=== PATIENT | female | born 1980 | race Caucasian/White ===

== ENCOUNTER 2025-02-18 21:01 | Observation (INO) | payer BC, SELFPAY ==
[2025-02-18 15:32] VITALS: BP 118/81
[2025-02-18 16:51] VITALS: BP 136/70
[2025-02-18] MEDS: DECADRON 10 MG IV (17:21)
[2025-02-18] MEDS: BENADRYL 25 MG IV (17:21)
[2025-02-18] MEDS: PEPCID 20 MG IV (17:21)
[2025-02-18] MEDS: NSS 500 IV (17:22)
[2025-02-18] MEDS: VENTOLIN NEBULES 2.5 MG INH (17:46)
[2025-02-18 18:14] VITALS: BP 130/72
--- NOTE | 2025-02-18 19:06 | ED.GENMED ---
History of Present Illness
General
Chief Complaint: Allergic Reaction
Source: patient
Exam Limitations: none
Time Seen by Provider: 02/18/25 16:42
Nursing documentation reviewed up to this point in time: agreed with
History of Present Illness
History of Present Illness:
Patient presents to ED secondary to worsening itchy rash over the past 3 days. Patient was evaluated by her primary care physician and was started on Medrol dose pack yesterday, without improvement symptoms. Denies fever or chills. Denies nausea,
vomiting, or diarrhea. Denies voice change. Patient however, does report sensation of swelling in the throat, which is making it difficult for her to swallow due to pain with swelling sensation. Denies chest pain or shortness of breath. Patient
has had similar rash in the past secondary to allergic reaction to medications, but has never experienced throat swelling sensation. Patient has taken Benadryl this morning, with minimal relief of symptoms as well.
Review of Systems
Review of Systems
Allergies reviewed?: Yes
All Other Systems: ROS reviewed and negative except as documented in HPI and ROS
Constitutional: Reports no symptoms; Denies fever or chills
EENT: Reports other (Throat swelling)
Respiratory: Denies cough or trouble breathing
ABD/GI: Reports no symptoms
Musculoskeletal: Reports no symptoms
Skin: Reports itching and rash
Neurological: Reports no symptoms
Phy Exam
Physical Exam
Physical Exam:
Physical Exam
General: mild distress, not acutely ill. afebrile
Head: nc/at. eomi
Neck: supple. no meningeal signs. normal posterior pharynx. normal tonsils
Heart: s1/s2 regular rate and rhythm
Lungs: no acute respiratory distress. clear bilaterally
Abdomen: normal bowel sounds. not tender.
Neuro: alert and oriented x 3. no focal neurological deficits
Skin: urticaria noted over b/l UE/LE and face
Psychiatric: well kept. interactive and cooperative
Extremities: no edema. no calf tenderness.
Course
Orders/Labs/Results
Orders:
Orders
02/18/25 17:13
Dexamethasone Sod Phosphate [Decadron] 10 mg IV NOW STA
Diphenhydramine [Benadryl] 25 mg IV NOW STA
Famotidine [Pepcid] 20 mg IV NOW STA
02/18/25 17:14
0.9% Sodium Chloride 500 ml [Nss] 500 ml IV BOLUS
02/18/25 17:22
Albuterol Nebs [Ventolin Nebules] 2.5 mg INH R NOW STA
02/18/25 20:28
Test Result ONCE
02/18/25 20:41
Basic Metabolic Panel Urgent
Complete Blood Count/No Diff Urgent
HCG, Serum Qualitative Screen Urgent
02/18/25 20:45
Admit/Transfer Patient As Directed
Co-Sign Provider:
Level of Care: Observation services
Assign to:: Telemetry
Physician / Group: [email or web address]
Diagnosis: allergic reaction
Reason for Telemetry: Other
Other Reason for Telemetry: eavl for anaphylaxis
Date to Stop Telemetry: 02/20/25
Time to Stop Telemetry: 11:00
02/18/25 20:47
Code Status As Directed
Resuscitation Status: Full Code
02/18/25 21:41
Bisacodyl [Dulcolax] 10 mg RECTAL [id number] PRN
Diphenhydramine [Benadryl] 6.25 mg IV Q4HPRN PRN
Docusate W/Senna [Senokot-S] 1 tablet PO BIDPRN PRN
Ipratropium/Albuterol Sulfate [Duoneb] 3 ml INH R Q4HPRN PRN
Polyethylene Glycol Powder [Miralax] 17 grams PO DAILYPRN PRN
02/18/25 21:41
Activity As Directed
Activity Level: With Assistance
Pneumatic Compression Sleeves As Directed
Type: Knee high
Vital Signs As Directed
Frequency: Per unit guidelines
DX Deep Vein Thrombosis Video Routine
02/19/25 Breakfast
Full Liquids
At Your Request: Full Participation
02/19/25 06:35
Basic Metabolic Panel IN AM
Complete Blood Count/With Diff IN AM
02/19/25 08:00
Dexamethasone Sod Phosphate [Decadron] 2 mg IV Q12
Famotidine [Pepcid] 20 mg IV Q12
02/20/25 11:00
DC Protocol for Telemetry ONCE
Abnormal Lab Results
02/18/25
20:41
WBC 15.1 H 10^3/uL
(4.8-10.8)
Chloride 109 H mmol/L
(98-107)
Glucose 129 H mg/dl
(70-99)
02/18/25 20:41
02/18/25 20:41
Vital Signs
Initial and Last Documented VS:
Initial Vital Signs
Temp Pulse Resp BP Pulse Ox
98.4 F 95 16 118/81 93
02/18/25 15:32 02/18/25 15:32 02/18/25 15:32 02/18/25 15:32 02/18/25 15:32
Last Documented Vital Signs
Temp Pulse Resp BP Pulse Ox
98 F 78 16 112/56 95
02/19/25 11:06 02/19/25 11:06 02/19/25 11:06 02/19/25 11:06 02/19/25 11:06
MDM/Problems Addressed
MDM/Problems Addressed:
History and exam concerning for continual allergic reaction symptoms, despite treatment. In light of patient's subjective ongoing throat swelling sensation with hives, will need further treatment.
*Critical Care Note
Total Time (30-74mins, 75-104mins- exclusive of procedures): Not Applicable
ED Attending Note
-
Portions of this chart may have been created with voice recognition software.� Occasional wrong word or��sound alike� substitutions may have occurred due to the inherent limitations of voice recognition software.
Discharge Plan
Departure
Patient Disposition: Admit
Date of Disposition: 02/18/25
Time of Disposition: 20:26
Admit to: Telemetry
Presentation/result/management discussed w/ accepting MD/DO: Hospitalist
Discharge Problem:
Allergic reaction
Interventions
Interventions:
*General Assessment Last Done: 02/18/25 16:48
*ED- Fall Risk Assessment Last Done: 02/18/25 16:32
*Nursing Disposition Last Done: 02/18/25 21:36
ED- Cardiac Assessment Last Done: 02/18/25 16:32
ED- Pulmonary Assessment Last Done: 02/18/25 16:32
ED-Skin Assessment Last Done: 02/18/25 16:32
Discharge Date and Time
Discharge Date/Time: 02/18/25 21:37
--- NOTE | 2025-02-18 20:30 | HPS.HSE ---
Family Physician
-
Family Physician: Mag Ricci
Chief Complaint
-
worsening itchy hives
History of Present Illness
45F No prior DH visit , HX allergy to PCN and Sulfa seean at ER for worsening itchy rash over the past 3 days. -
- evaluated by PCP who started on Medrol dose pack yesterday, without improvement symptoms.
- Temporal correlation of precipitants: 2 new Meds - Symbicort vs. Tessalon srinivasan since 02/12/25. New onset of hives on 02/16/25.
- never use Symbicort before. She had Tessalon pearls before but not allergic reaction to it
- subjective throat swelling but no angioedema of lips and tongue
-HX similar rash in the past secondary to allergic reaction to medications, but has never experienced throat swelling sensation.
- Patient has taken Benadryl this morning, with minimal relief of symptoms as well.
- Denies fever or chills. Denies voice change.
- Denies chest pain or shortness of breath.
Medical History
Past Medical History
Past Medical History: Reports None
Past Surgical History: Reports None
Social History
Tobacco: Non-smoker
Alcohol: Occasional
Family History
Family History: Not pertinent
Allergies / Home Medications
Allergies reflects when Allergies were last updated in [facility].
Home Medications with original date entered in [facility]
Allergy/Medication List:
Allergies
Allergy/AdvReac Type Severity Reaction Status Date / Time
amoxicillin Allergy Hives Verified 02/18/25 15:37
Sulfa (Sulfonamide Allergy Nausea / Verified 02/18/25 15:37
Antibiotics) Vomiting
If medication reconciliation has not been performed, why?: Other ( not on any meds )
Review of Systems
-
Constitutional: Reports No Symptoms
EENT: Reports See HPI
Respiratory: Reports No Symptoms
Cardiac: Reports No Symptoms
Abdomen/GI: Reports No Symptoms
: Reports No Symptoms
Musculoskeletal: Reports See HPI
Neurological: Reports No Symptoms
Endocrine: Reports No Symptoms
Hematologic/Lymphatic: Reports No Symptoms
Psych: Reports No Symptoms
Physical Exam
Vital Signs
Vital Signs
Temp Pulse Resp BP Pulse Ox
98.4 F 76 20 130/72 97
02/18/25 15:32 02/18/25 18:14 02/18/25 18:14 02/18/25 18:14 02/18/25 18:14
Physical Exam
General: Well Developed, Well Nourished and No Apparent Distress
HEENT: Moist mucous membranes
Respiratory: Clear
Cardiac: S1/S2 and Regular Rhythm; No Murmur or Rub
GI: Soft, Non Tender, Non Distended and Normal Bowel Sounds; No Organomegaly
Rectal: Deferred by Provider
Musculoskeletal: No Clubbing, No Cyanosis and No Edema
Skin: Rash (diffuse maculopapular urticaria rash all over the extremizes and axilla )
Neuro: Nonfocal/grossly intact
Data Reviewed
-
Lab Data: Other (pending )
Impression/Plan
-
Vital Signs
Temp Pulse Resp BP Pulse Ox
98.4 F 76 20 130/72 97
02/18/25 15:32 02/18/25 18:14 02/18/25 18:14 02/18/25 18:14 02/18/25 18:14
ASSESSMENT & PLAN
Extensive diffuse maculopapular urticaria hives / pruritic allergic dermatis all over the extremes, body and and axilla
Temporal correlation of precipitants: 2 new Meds - Symbicort vs. Tessalon srinivasan since 02/12/25. New onset of hives on 02/16/25.
- never use Symbicort before. She had Tessalon pearls before but not allergic reaction to it
- Associated subjective sensation of swelling in the throat but clear on exam
- subjective odynophagia
- slight raspy voice reported
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
- Subjective improvement with Benadryl at home
- S/P IV Decadron , IV Benadryl and IV Pepcid at ER - will continue
- No angioedema of tongue and lips
- she is protecting AW
- to consider imaging vs ENT evaluation, if throat swelling
DVT Px: SCD
Full code
Obs TLM
[2025-02-18 20:53] LABS: Hematocrit 37.3 % (37.0-47.0); Hemoglobin 12.9 g/dL (12.0-16.0); Mean Corp Hgb Conc. 34.6 g/dL (33.0-37.0); Mean Corpuscular Hgb 29.9 pg (27.0-31.0); Mean Corpuscular Volume 86.5 fL (81.0-99.0); Platelet Count 377 10^3/uL (130-400); Red Blood Cell Count 4.31 10^6/uL (4.20-5.40); Red Cell Dist. Width 13.3 % (11.5-14.5); White Blood Cell Count 15.1 10^3/uL (4.8-10.8)
[2025-02-18 21:12] LABS: Blood Urea Nitrogen 12 mg/dl (7-17); Calcium 9.8 mg/dl (8.4-10.2); Carbon Dioxide 24 mmol/L (22-30); Chloride 109 mmol/L (98-107); Glucose 129 mg/dl (70-99); Potassium 3.9 mmol/L (3.5-5.1); Sodium 140 mmol/L (135-145); eGFR > 60.00
[2025-02-18 21:17] LABS: HCG, Serum Qualitative Screen Negative
[2025-02-18 21:18] VITALS: BP 128/70
--- NOTE | 2025-02-18 21:36 | PTCARENOTE ---
Pt received from ED to [facility]-2. Pt oriented to room and call maldonado.
[2025-02-18 21:58] VITALS: BP 118/62; BMI 27.6
[2025-02-18] MEDS: BENADRYL 6.25 MG IV (22:08)
[2025-02-18 23:57] VITALS: BP 106/53
[2025-02-19 03:27] VITALS: BP 120/62
[2025-02-19] MEDS: BENADRYL 6.25 MG IV ×2 (05:23→11:41)
[2025-02-19 07:20] LABS: % Basophils 0.2 % (0-2); % Immature Granulocytes 0.4 % (0-0.5); % Lymphocytes 9.8 % (20.5-51.1); % Monocytes 6.1 % (1.7-9.3); % Neutrophils 80.5 % (42.2-75.2); Absolute Eosinophils 0.3 10^3/uL (0-0.7); Absolute Monocytes 0.6 10^3/uL (0.1-0.6); Absolute Neutrophils 8.3 10^3/uL (1.4-6.5); Hematocrit 39.7 % (37.0-47.0); Hemoglobin 13.3 g/dL (12.0-16.0); Mean Corp Hgb Conc. 33.5 g/dL (33.0-37.0); Mean Corpuscular Hgb 29.3 pg (27.0-31.0); Mean Corpuscular Volume 87.4 fL (81.0-99.0); Mean Platelet Volume 10.5 fL (7.4-10.4); Nucleated Red Blood Cells % 0 %; Platelet Count 410 10^3/uL (130-400); Red Blood Cell Count 4.54 10^6/uL (4.20-5.40); Red Cell Dist. Width 13.4 % (11.5-14.5); White Blood Cell Count 10.2 10^3/uL (4.8-10.8)
[2025-02-19 07:54] LABS: Blood Urea Nitrogen 12 mg/dl (7-17); Calcium 9.5 mg/dl (8.4-10.2); Carbon Dioxide 26 mmol/L (22-30); Chloride 109 mmol/L (98-107); Estimated Creatinine Clearance 113 ml/min; Glucose 104 mg/dl (70-99); Potassium 4.3 mmol/L (3.5-5.1); Sodium 142 mmol/L (135-145); eGFR > 60.00
[2025-02-19] MEDS: PEPCID 20 MG IV (08:05)
[2025-02-19] MEDS: DECADRON 2 MG IV (08:07)
--- NOTE | 2025-02-19 08:13 | W.PN.HOSP.TC ---
Today's Communication/Plan
-
- dc today
Assessment / Plan
Assessment / Plan
Assessment:
45yoF pmh depression/anxiety admitted for a worsening pruritic rash over the past three days. Started on symbicort and tessalon pearls on 02/12. Hives started 02/16. Never used symbicort before, has used tessalon pearls w/o rxn. Evaluated by PCP, was
started on medrol dose pack the day prior w/o improvement in sx. +throat swelling. Pt has had a similar rash in the past secondary to med allergies, but has never had the throat swelling before. Minimal relief w benadryl.
Plan:
Extensive urticaria
- temporal correlation of two new meds - symbicort vs tessalon pearls -- less likely tessalon pearls as pt has had these before w/o rxn.
- subjective swelling of throat
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
- subjective and clinical improvement
- IV decadron, benadryl, pepcid
- no angioedema
Depression/anxiety
- cont home zoloft
Diet: full liquids
DVT ppx: SCDs
Code status: FULL CODE
Anticipated Discharge: Today
Subjective/Interval History
-
Date of Service: February 19, 2025
Urticaria improved, less erythematous and no longer covering pt's neck. Pt's swollen throat sensation also improved.
Objective Data
-
Labs:
Laboratory Results
02/18/25 02/19/25
20:41 06:35
WBC 15.1 H 10.2
Hgb 12.9 13.3
Hct 37.3 39.7
Plt Count 377 410 H
Sodium 140 142
Potassium 3.9 4.3
Chloride 109 H 109 H
Carbon Dioxide 24 26
BUN 12 12
Creatinine 0.7 0.6
Glucose 129 H 104 H
Calcium 9.8 9.5
Vital Signs:
Vital Signs
Temp Pulse Resp BP Pulse Ox
97.4 F 67 16 120/62 95
02/19/25 03:27 02/19/25 03:27 02/19/25 03:27 02/19/25 03:27 02/19/25 03:27
I&O
02/18/25 02/19/25 02/20/25
06:59 06:59 06:59
Intake Total 480 / 480
Balance 480 / 480
Review of Systems
-
History Source: Patient
Constitutional: Reports No Symptoms
Respiratory: Reports No Symptoms
Cardiac: Reports No Symptoms
Abdomen/GI: Reports No Symptoms
Musculoskeletal: Reports No Symptoms
Skin: Reports Rash (urticaria)
Neuro: Reports No Symptoms
Physical Exam
-
General: Well Developed and Well Nourished
HEENT: Normocephalic, Atraumatic and Anicteric
Respiratory: Clear to Auscultation and Non Labored Respirations
Cardiac: Regular Rhythm and S1/S2
GI: Soft, Nontender, Nondistended and Normal Bowel Sounds
Musculoskeletal: No Clubbing, No Cyanosis and No Edema
Skin: Warm, Dry and Rash (urticaria over extensors in all four extremities)
Neuro: Awake, Alert and Oriented
Psych: Calm
[2025-02-19 08:53] VITALS: BP 104/70
--- NOTE | 2025-02-19 10:56 | W.DCSUMMARY ---
Discharge Summary
Discharge Data
Date of Admission: 02/18/25
Date of Discharge: 02/19/25
-
Pending Results: No
Hospital Course
Discharging Physician : Dr. Alyssia Chase, Dr. Orlando Greco
Disposition : home
Primary care physician : Mag Ricci
Principal Discharge diagnosis : allergic reaction, angioedema
Chronic Discharge diagnosis : depression/anxiety
Hospital Course : 45yoF pmh depression/anxiety admitted for a worsening pruritic rash over the past three days. Started on symbicort and tessalon pearls on 02/12. Hives started 02/16. Never used symbicort before, has used tessalon pearls w/o rxn.
Evaluated by PCP, was started on medrol dose pack the day prior w/o improvement in sx. +throat swelling. Pt has had a similar rash in the past secondary to med allergies, but has never had the throat swelling before. Minimal relief w benadryl.
Urticaria improved, less erythematous and no longer covering pt's neck. Pt's swollen throat sensation also improved. Hemodynamically stable, afebrile.
Important imaging findings : n/a
Procedure findings : n/a
Discharge Plan
-
Patient Disposition: Home (Routine Discharge)
Discharge Diagnosis/Procedures: allergic reaction, angioedema
Condition: Fair
Diet: No restrictions and As tolerated
Driving Restrictions: As prior to admission
Bathing Restrictions: None
Instructions: Angioedema, Drug allergy
Referrals:
Mag Ricci DO [Family Provider, Family Practice] - in one week
Additional Discharge Medication Instructions: Finish medrol dose pack.
Prescriptions:
Continued
sertraline [Zoloft] 100 mg Tablet
100 mg PO DAILY Qty: 0 0RF
sertraline [Zoloft] 50 mg Tablet
50 mg PO DAILY Qty: 0 0RF
Discharge Orders:
Discharge Patient (As Directed); Ordered 02/19/25
Ordered By: Alyssia Chase
Discharge Date and Time
Print Language: NIGERIAN
[2025-02-19 11:06] VITALS: BP 112/56
--- NOTE | 2025-02-19 11:15 | CM ---
forest logistics manager reviewed patient's chart and met with patient and patient lives with her spouse and 4 children in a 2story home, patient is independent with adl's and ambulation, no dme, patient drives, home today no needs.
OBS letter discussed with patient signed and placed on chart.
PCP: Dr. Ricci
Pharmacy: [facility] in [place]
== END 2025-02-19 12:04 | disposition home or self-care (01) ==
LOC: 4 WEST ACU 21:01
PROVIDERS: ADMITTING PHYSICIAN Internal Medicine; ATTENDING PHYSICIAN Hospitalist; EMERGENCY PHYSICIAN Emergency Medicine; FAMILY PHYSICIAN Family Medicine Geriatric Medicine
DX: T78.3XXA Angioneurotic edema, initial encounter (principal); Z88.0 Allergy status to penicillin; F32.A Depression, unspecified; F41.9 Anxiety disorder, unspecified; L50.9 Urticaria, unspecified
CPT/HCPCS: 80048; 84703; 85025; 85027; 96361; 96374; 96375; 99285; G0378